=== PATIENT | female | born 1970 | race Two or more races ===

== ENCOUNTER 2023-10-11 17:31 | Emergency (ER) | payer OTHER ==
[~2023-10-11] VITALS: Ht 162.6 cm; Wt 87.2 kg
[2023-10-11 18:45] VITALS: BP 114/73; PULSE 100; RESP 19; TEMP 98.1; O2SAT 99
[2023-10-11] MEDS: KETOROLAC TROMETH 60MG/2ML VIAL IM ONE (19:01)
[2023-10-11] MEDS ORDERED: LIDO5DIS21 TOP (19:40)
[2023-10-11] MEDS ORDERED: CYCL-839 PO (19:40)
== END 2023-10-11 19:46 | disposition home or self-care (01) ==
LOC: ER 17:31
DX: S39.012A Strain of muscle, fascia and tendon of lower back, initial encounter (principal); I10 Essential (primary) hypertension; X58.XXXA Exposure to other specified factors, initial encounter; Y93.89 Activity, other specified; Y92.89 Other specified places as the place of occurrence of the external cause; Y99.8 Other external cause status
CPT/HCPCS: 96372; 99283; J1885